=== PATIENT | male | born 1955 | race Two or more races ===

== ENCOUNTER 2025-04-04 02:07 | Emergency (ER) | payer OTHER ==
[~2025-04-04] VITALS: Ht 188 cm; Wt 95.4 kg
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
[2025-04-04] MEDS: HYDROcodone-ACET 5/325MG TAB PO ONE (03:26)
[2025-04-04] MEDS: KETOROLAC TROMETH 60MG/2ML VIAL IM ONE (03:27)
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
[2025-04-04] MEDS ORDERED: METH-1182 PO (04:40)
[2025-04-04] MEDS ORDERED: METH4PAK PO (04:40)
[2025-04-04 04:49] VITALS: BP 125/77; PULSE 70; TEMP 98.6
[2025-04-04 04:55] VITALS: RESP 16; O2SAT 97
== END 2025-04-04 05:17 | disposition home or self-care (01) ==
LOC: EDBD 02:07 → ER 02:07
DX: S13.4XXA Sprain of ligaments of cervical spine, initial encounter (principal); V89.2XXA Person injured in unspecified motor-vehicle accident, traffic, initial encounter; Y93.89 Activity, other specified; Y92.89 Other specified places as the place of occurrence of the external cause; Y99.8 Other external cause status
CPT/HCPCS: 72125; 72128; 96372; 99285; J1885